=== PATIENT | female | born 1980 | race Two or more races ===

== ENCOUNTER 2017-07-03 16:43 | Inpatient (IN) | payer BC ==
[~2017-07-03] VITALS: Ht 157.5 cm; Wt 85.5 kg
[2017-07-03 18:11] LABS: Albumin 3.2 g/dL (3.4-5.0); Calcium 8.4 mg/dL (8.5-10.1); Potassium 3.9 mmol/L (3.5-5.1)
[2017-07-03 18:13] LABS: BUN/Creatinine Ratio 8.9
[2017-07-03 18:15] LABS: Bilirubin, Total 0.7 mg/dL (0.2-1.0)
[2017-07-03 18:25] LABS: CONDITION Y; Eosinophils # (auto) 0.3 uL; Mean Corpuscular Hgb Conc. 34.5 g/dL (32.0-36.0); Monocytes # (auto) 1.2 uL
[2017-07-03 18:26] LABS: Basophils # (auto) 0.1 uL; Basophils % (auto) 0.4 % (0.0-2.0); Eosinophils % (auto) 2.2 % (0.0-7.0); Hematocrit 45.8 % (36.0-46.0); Hemoglobin 15.8 g/dL (12.2-16.2); Lymphocytes # (auto) 2.8 uL; Lymphocytes % (auto) 20.3 % (10.0-50.0); Mean Corpuscular Hemoglobin 30.9 pg (28.0-32.0); Mean Corpuscular Volume 89.6 fL (80.0-100.0); Mean Platelet Volume 9.4 fL (7.4-10.4); Monocytes % (auto) 8.8 % (0.0-12.0); Neutrophils # (auto) 9.4 uL; Neutrophils % (auto) 68.3 % (37.0-80.0); Platelet Count (auto) 276 10^3/uL (140-450); Red Cell Distribution Width 14.6 % (11.6-16.0); White Blood Cell 13.8 10^3/uL (4.4-10.8)
[2017-07-03] MEDS ORDERED: ONDANSETRON HCL 4 MG/2 ML VIAL IV ONE (21:30)
[2017-07-03] MEDS ORDERED: SODIUM CHLORIDE 0.9% 1,000 ML IV ONE (21:30)
[2017-07-03] MEDS ORDERED: ALUM & MAG HYDROX-SIMETH LIQ(MAALOX) 30 ML PO ONE (21:45)
[2017-07-03] MEDS ORDERED: LIDOCAINE VISCOUS 2% 15ML UD PO ONE (21:45)
[2017-07-03 22:18] LABS: Urine Bilirubin Negative (Negative); Urine Blood Negative /uL (Negative); Urine Color Yellow (Yellow); Urine Glucose Normal (Normal); Urine Ketone Negative (Negative); Urine Mucus FEW (None Seen); Urine Nitrite Negative (Negative); Urine RBC 1 /hpf (0 - 4); Urine Squamous Epithelial Cell MOD /hpf (<5); Urine Urobilinogen Normal (Negative)
[2017-07-03] MEDS ORDERED: cefTRIAXone 1GM/50ML D5W 50 ML IV ONE (23:15)
[2017-07-04] MEDS ORDERED: MORPHINE SULF INJ 2 MG/ML SYRINGE 1ML IV PRN ×2 (06:15)
[2017-07-04] MEDS ORDERED: NITROGLYCERIN 0.4 MG SL TAB SL PRN (06:15)
[2017-07-04] MEDS ORDERED: ONDANSETRON HCL 4 MG/2 ML VIAL IV PRN (06:15)
[2017-07-04] MEDS: SODIUM CHLORIDE 0.9% 1,000 ML IV SCH ×2 (06:46→14:25)
[2017-07-04] MEDS: FAMOTIDINE (10MG/ML) 2ML VL IV SCH ×2 (06:46→18:19)
[2017-07-04 08:45] VITALS: BP 101/69
[2017-07-04] MEDS: cefTRIAXone 1GM/50ML D5W 50 ML IV SCH (08:49)
[2017-07-04 09:00] VITALS: BP 101/69
[2017-07-04] MEDS ORDERED: cefTRIAXone 1GM/50ML D5W 50 ML IV SCH (09:00)
[2017-07-04 10:13] LABS: Hepatitis B Surface Antibody Negative
[2017-07-04] MEDS ORDERED: ERGO1CAP6 PO (10:31)
[2017-07-04] MEDS ORDERED: ALPR0.25 PO (10:31)
[2017-07-04 13:00] VITALS: BP 103/70
[2017-07-04 16:54] VITALS: BP 92/55
[2017-07-04] MEDS: PROMETHAZINE W/CODEINE 5 ML ORAL SYRUP PO PRN ×2 (18:20→22:22)
[2017-07-04 20:00] VITALS: BP 103/62
[2017-07-04 22:00] VITALS: BP 103/62
[2017-07-05 04:55] VITALS: BP 113/70
[2017-07-05] MEDS: FAMOTIDINE (10MG/ML) 2ML VL IV SCH (05:27)
[2017-07-05] MEDS: PROMETHAZINE W/CODEINE 5 ML ORAL SYRUP PO PRN (05:31)
[2017-07-05] MEDS: SODIUM CHLORIDE 0.9% 1,000 ML IV SCH ×2 (06:17→16:20)
[2017-07-05 06:24] LABS: Basophils # (auto) 0 uL; Basophils % (auto) 0.6 % (0.0-2.0); CONDITION Y; Eosinophils # (auto) 0.3 uL; Eosinophils % (auto) 3.3 % (0.0-7.0); Hematocrit 40.8 % (36.0-46.0); Hemoglobin 13.6 g/dL (12.2-16.2); Lymphocytes # (auto) 2.7 uL; Lymphocytes % (auto) 33.7 % (10.0-50.0); Mean Corpuscular Hemoglobin 30.3 pg (28.0-32.0); Mean Corpuscular Hgb Conc. 33.3 g/dL (32.0-36.0); Mean Platelet Volume 8.6 fL (7.4-10.4); Monocytes # (auto) 0.7 uL; Monocytes % (auto) 8.8 % (0.0-12.0); Neutrophils # (auto) 4.3 uL; Neutrophils % (auto) 53.6 % (37.0-80.0); Platelet Count (auto) 260 10^3/uL (140-450)
[2017-07-05 06:50] LABS: Potassium 4.2 mmol/L (3.5-5.1)
[2017-07-05 06:59] LABS: Albumin 2.5 g/dL (3.4-5.0); BUN/Creatinine Ratio 5.4; Calcium 7.5 mg/dL (8.5-10.1)
[2017-07-05 07:02] LABS: Bilirubin, Total 0.4 mg/dL (0.2-1.0); Total Protein 6.1 g/dL (6.4-8.2)
[2017-07-05 09:00] VITALS: BP 97/67
[2017-07-05] MEDS: cefTRIAXone 1GM/50ML D5W 50 ML IV SCH (10:01)
[2017-07-05] MEDS ORDERED: HYOSCYAMINE SULF 0.125 MG TAB PO PRN (10:45)
[2017-07-05 13:00] VITALS: BP 102/64
[2017-07-05 16:50] VITALS: BP 110/64
[2017-07-05 17:53] VITALS: BP 110/64
== END 2017-07-05 18:53 | disposition home or self-care (01) | DRG 392 ==
LOC: ER 16:51 → OVERFLOW 16:52 → CENTRAL 07-04 08:56
PROVIDERS: ADMIT Internal Medicine; ATTEND Internal Medicine Pulmonary Disease
DX: K52.9 Noninfective gastroenteritis and colitis, unspecified (principal); K76.0 Fatty (change of) liver, not elsewhere classified; E86.0 Dehydration; J03.90 Acute tonsillitis, unspecified; K57.30 Diverticulosis of large intestine without perforation or abscess without bleeding; Z90.49 Acquired absence of other specified parts of digestive tract; Z90.711 Acquired absence of uterus with remaining cervical stump
CPT/HCPCS: 36415; 74176; 76705; 80053; 81001; 81025; 82150; 83690; 85025; 86704; 86706; 86708; 86803; 87045; 87340; 87493; 87880; 87899; 94761; 96361; 96365; 96375; J0696; J2405; J3490